=== PATIENT | female | born 1955 | race Caucasian/White ===

== ENCOUNTER 2017-08-13 10:08 | Day surgery (SDC) | payer OTHER ==
[2017-08-13] MEDS ORDERED: NORMAL SALINE 1,000 ML IV ONE ×2 (10:30→12:59)
[2017-08-13] MEDS ORDERED: MORPHINE SULFATE 2 MG/ML DISP.SYRIN ONE (10:50)
[2017-08-13] MEDS ORDERED: ONDANSETRON HCL/PF 2 MG/ML VIAL ONE (10:50)
[2017-08-13] MEDS ORDERED: ONDANSETRON HCL/PF 2 MG/ML VIAL IV PRN (10:52)
[2017-08-13] MEDS: MORPHINE SULFATE 2 MG/ML DISP.SYRIN IV PRN ×2 (10:54→12:10)
[2017-08-13 16:04] VITALS: BP 136/72
== END 2017-08-13 10:09 | disposition home or self-care (01) ==
LOC: SUR 10:08
PROVIDERS: ATTEND Urology
PROC: 0TC68ZZ Extirpation of Matter from Right Ureter, Via Natural or Artificial Opening Endoscopic (ICD-10-PCS; 2017-08-13)
PROC: 0T768DZ Dilation of Right Ureter with Intraluminal Device, Via Natural or Artificial Opening Endoscopic (ICD-10-PCS; 2017-08-13)
PROC: 0T9680Z Drainage of Right Ureter with Drainage Device, Via Natural or Artificial Opening Endoscopic (ICD-10-PCS; principal; 2017-08-13 13:00)
DX: N20.1 Calculus of ureter (principal); E78.5 Hyperlipidemia, unspecified; E66.9 Obesity, unspecified; Z68.39 Body mass index [BMI] 39.0-39.9, adult
CPT/HCPCS: 52320; 52332; 74420; 76000; 82365; J2405

== ENCOUNTER 2017-08-20 11:55 | Day surgery (SDC) | payer OTHER ==
[~2017-08-20 11:55] MED LIST: CIPROFLOXACIN HCL 500 MG TABLET PO PRN
[2017-08-20] MEDS ORDERED: LIDOCAINE 5 APPL TUBE TP ONE (13:00)
[2017-08-20] MEDS ORDERED: LIDOCAINE HCL 10 APPL CARTRIDGE TP ONE (13:00)
[2017-08-20 13:16] VITALS: BP 128/85
== END 2017-08-20 11:56 | disposition home or self-care (01) ==
LOC: AMB 11:55
PROVIDERS: ATTEND Urology
PROC: 0TP98DZ Removal of Intraluminal Device from Ureter, Via Natural or Artificial Opening Endoscopic (ICD-10-PCS; principal; 2017-08-20 12:35)
DX: Z46.6 Encounter for fitting and adjustment of urinary device (principal); E78.5 Hyperlipidemia, unspecified; E66.9 Obesity, unspecified; Z68.39 Body mass index [BMI] 39.0-39.9, adult